=== PATIENT | male | born 2000 | race Caucasian/White ===

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

== ENCOUNTER 2021-09-17 10:04 | Emergency (ER) | payer BC ==
[2021-09-17 10:35] VITALS: O2SAT 100
--- NOTE | 2021-09-17 11:14 | ERPHSYRPT ---
- History of Present Illness Time Seen by Provider: 09/17/21 10:24 Source: patient Exam Limitations: no limitations Patient Subjective Stated Complaint: "My shoulder hurts." Triage Nursing Assessment: The patient reported that he was working under a car four days ago and is experiencing left shoulder pain. He denied any shortness of breath, headache, dizziness, loss of consciousness. He did report decreased ROM with increasing pain to the left shoulder. Head atraumatic normocephalic. pupils 3mm bilateral. Symmetrical chest expansion. no ecchymosis/crepitus to the chest wall. Left shoulder. with decreased ROM and pain upon palpation to the posterior scapula. No crepitus with manipulation. Peripheral pulses +3 bilateral. Physician History: 20 years old male presented in the ER with chief complaint of left shoulder and left-sided chest wall pain after he was working under a car on the [place] with slipped and car hit the shoulder and the left side of the chest. Complaining of moderate intensity sharp pain with movements of right shoulder and palpation of left anterior chest and scapula and better with being still. Denies numbness tingling or weakness of left upper extremity. No difficulty breathing. No bruising or swelling. Timing/Duration: day(s) (3), constant, sudden Severity: moderate Associated Symptoms: denies symptoms Allergies/Adverse Reactions: No Known Drug Allergies Allergy (Unverified 09/17/21 10:18) Hx Tetanus, Diphtheria Vaccination/Date Given: No Hx Influenza Vaccination/Date Given: No Hx Pneumococcal Vaccination/Date Given: No Travel Risk - International Travel Have you traveled outside of the country in past 3 weeks: No - Coronavirus Screening Are you exhibiting any of the following symptoms?: No Close contact with a COVID-19 positive Pt in past 14-21 Days: No - Vaccine Status Have you recieved a Covid-19 vaccination: No - Review of Systems Constitutional: No Symptoms Eyes: No Symptoms Ears, Nose, & Throat: No Symptoms Respiratory: No Symptoms Cardiac: Chest Pain Abdominal/Gastrointestinal: No Symptoms Genitourinary Symptoms: No Symptoms Musculoskeletal: Injury, Joint Pain Skin: No Symptoms Neurological: No Symptoms Endocrine: No Symptoms Hematologic/Lymphatic: No Symptoms Immunological/Allergic: No Symptoms - Past Medical History Pertinent Past Medical History: Yes Psycho-Social History: Depression - Past Surgical History Past Surgical History: Yes Musculoskeletal: Other Other Surgical History: tendon surgery right hand - Social History Smoking Status: Former smoker Exposure to second hand smoke: Yes Drug Use: none Patient Lives Alone: No - Nursing Vital Signs Nursing Vital Signs: Initial Vital Signs Temperature 98.4 F 09/17/21 10:05 Pulse Rate 88 09/17/21 10:05 Respiratory Rate 18 09/17/21 10:05 Blood Pressure 156/85 09/17/21 10:05 O2 Sat by Pulse Oximetry 100 09/17/21 10:05 Pain Scale Pain Intensity 6 - Physical Exam General Appearance: no apparent distress, alert Eye Exam: PERRL/EOMI, eyes nml inspection Ears, Nose, Throat Exam: normal ENT inspection, TMs normal, pharynx normal, moist mucous membranes Neck Exam: normal inspection, non-tender, supple, full range of motion Respiratory Exam: normal breath sounds, chest tenderness (Mild left anterior and posterior chest wall tenderness without crepitus.) Cardiovascular Exam: regular rate/rhythm, normal heart sounds Extremity Exam: normal inspection, pelvis stable, limited range of motion (Left shoulder with diffuse tenderness. Intact passive range of motion. 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 Patient is counseled, very anxious and difficult to convince about obtaining x-rays. X-rays are negative for any acute fracture dislocation. I believe patient has contusion, recommended ibuprofen , outpatient follow-up recommended. Discussed signs symptoms of worsening needing return to ER which he seems understanding. 09/17/21 12:11 Counseled pt/family regarding: diagnosis, need for follow-up, rad results - Departure Departure Disposition: Home Clinical Impression: Shoulder contusion, Chest wall contusion Condition: Stable Critical Care Time: No Referrals: MYRON GARCIAS MD [Primary Care Provider] - Follow Up with PCP/3 days Instructions: Bruised Rib Additional Instructions: Take Tylenol/ibuprofen as needed. Follow-up with primary care for reevaluation. Return to ER for worsening pain/difficulty movements of shoulder or difficulty breathing etc. avoid exertional activity with your left upper extremity. Prescriptions: Ibuprofen 600 mg PO Q6HPRN PRN 10 Days #20 tablet PRN Reason: Pain
--- NOTE | 2021-09-17 12:03 | XRAY ---
Indication: Pain following injury. Comparison: None 3 view left shoulder demonstrates normal bones, articulation, and soft tissues.
--- NOTE | 2021-09-17 12:05 | XRAY ---
Indication: Pain following injury. Comparison: None 2 view left ribs demonstrates normal bones, articulation, and soft tissues with incidental tiny pulmonary calcified granulomas.
[2021-09-17 12:15] VITALS: BP 106/54; PULSE 78
== END 2021-09-17 12:20 | disposition home or self-care (01) ==
LOC: ED 10:04
DX: S40.012A Contusion of left shoulder, initial encounter (principal); S20.212A Contusion of left front wall of thorax, initial encounter; W20.8XXA Other cause of strike by thrown, projected or falling object, initial encounter
CPT/HCPCS: 71100; 73030; 99283

== ENCOUNTER 2021-12-24 18:22 | Emergency (ER) | payer BC ==
[2021-12-24 18:39] VITALS: O2SAT 100
[2021-12-24] MEDS ORDERED: TORAdol 30 mg Injection IM ONE (18:47)
--- NOTE | 2021-12-24 19:02 | ERPHSYRPT ---
- History of Present Illness Time Seen by Provider: 12/24/21 18:44 Source: patient Exam Limitations: no limitations Patient Subjective Stated Complaint: R hand pain after punching wall 2 hours ago Triage Nursing Assessment: Presents to ED ambulatory. A & OX3, answers questions appropriately. VSS. Skin PWD. C/o R hand pain after punching wall a couple hours ago. Noted bruising and deformity to lateral aspect of R hand. Swelling noted as well. C/o pain 10/10. Cap refill <3 seconds to nail beds of all fingers to R hand. Radial pulse 2+ to R wrist. Sensation intact. Small abrasion over 3 most proximal knuckle. Dried blood noted to area. Physician History: Patient is a 21-year-old male presents to emergency department for evaluation of pain to his right hand. Patient states he was upset and punched a wooden doorway. Injury occurred approximately 2 hours prior to arrival. Pain described as an ache that is localized. No radiation. Pain worse with movement and palpation. Patient denies other injuries. No elbow wrist or shoulder pain no BHT or LOC. No neck pain. Cervical spine cleared clinically. Patient is otherwise healthy. He voices no other complaints or concerns at this time. Occurred: this afternoon Method of Injury: direct blow Quality: constant Severity of Pain-Max: moderate Severity of Pain-Current: moderate Extremities Pain Location: hand: right Modifying Factors: Improves With: movement Associated Symptoms: none Allergies/Adverse Reactions: No Known Drug Allergies Allergy (Verified 12/24/21 18:33) Hx Tetanus, Diphtheria Vaccination/Date Given: No Hx Influenza Vaccination/Date Given: No Hx Pneumococcal Vaccination/Date Given: No Travel Risk - International Travel Have you traveled outside of the country in past 3 weeks: No - Coronavirus Screening Are you exhibiting any of the following symptoms?: No - Vaccine Status Have you recieved a Covid-19 vaccination: No - Review of Systems Constitutional: No Symptoms, No Fever, No Chills Eyes: No Symptoms Ears, Nose, & Throat: No Symptoms Respiratory: No Symptoms, No Cough, No Dyspnea Cardiac: No Symptoms, No Chest Pain, No Edema, No Syncope Abdominal/Gastrointestinal: No Symptoms, No Abdominal Pain, No Nausea, No Vo miting, No Diarrhea Genitourinary Symptoms: No Symptoms, No Dysuria Musculoskeletal: No Symptoms, No Back Pain, No Neck Pain Skin: No Symptoms, No Rash Neurological: No Symptoms, No Dizziness, No Focal Weakness, No Sensory Changes Psychological: No Symptoms Endocrine: No Symptoms Hematologic/Lymphatic: No Symptoms Immunological/Allergic: No Symptoms All Other Systems: Reviewed and Negative - Past Medical History Pertinent Past Medical History: Yes Psycho-Social History: Anxiety, Attention Deficit Disorder, Depression - Past Surgical History Past Surgical History: Yes Musculoskeletal: Other Other Surgical History: tendon surgery right hand - Social History Smoking Status: Current every day smoker Exposure to second hand smoke: Yes Drug Use: none Patient Lives Alone: No - Nursing Vital Signs Nursing Vital Signs: Initial Vital Signs Temperature 98.4 F 12/24/21 18:34 Pulse Rate 91 H 12/24/21 18:34 Respiratory Rate 16 12/24/21 18:34 Blood Pressure 137/88 12/24/21 18:34 O2 Sat by Pulse Oximetry 100 12/24/21 18:34 Pain Scale Pain Intensity 10 - Physical Exam General Appearance: no apparent distress, alert Eyes, Ears, Nose, Throat Exam: normal ENT inspection, TMs normal, pharynx normal, moist mucous membranes Neck Exam: normal inspection, non-tender, supple, full range of motion Cardiovascular/Respiratory Exam: chest non-tender, normal breath sounds, regular rate/rhythm, no respiratory distress Abdominal Exam: non-tender, soft, No guarding Back Exam: normal inspection, normal range of motion, No CVA tenderness, No vertebral tenderness Shoulder Exam: normal inspection, non-tender, no evidence of injury, normal ROM Elbow/Forearm Exam: normal inspection, non-tender, no evidence of injury, normal ROM Wrist Exam: normal inspection, non-tender, no evidence of injury, normal ROM Hand Exam: abrasions, bone tenderness, deformity, swelling, No infection, No laceration Neuro/Tendon Exam: normal sensation, normal motor functions, normal tendon functions Mental Status Exam: alert, oriented x 3, cooperative Skin Exam: normal color, warm, dry SpO2 Interpretation: normal SpO2: 100 O2 Delivery: Room Air - Course Nursing assessment & vital signs reviewed: Yes - Radiology Exams Hand X-ray Interpretation: Interpreted by me (Boxer's fracture along with a midshaft fourth metacarpal fracture.) Ordered Tests: Active Orders 24 hr Category Date Time Status HAND (MINIMUM 3 VIEWS) Stat Exams 12/24/21 18:39 Ordered Medication Summary Discontinued Medications Generic Name Dose Route Start Last Admin Trade Name Carolina PRN Reason Stop Dose Admin Ketorolac Tromethamine 30 mg 12/24/21 18:47 Ketorolac Tromethamine 30 Mg/Ml Inj IM 12/24/21 18:48 STAT ONE - Progress Progress: improved Progress Note: X-ray reveals a boxer's fracture along with a midshaft fourth metacarpal fracture of the right hand. There is a large hematoma at the location. There is also an abrasion which appears superficial however I cannot definitively determine that it is not an open fracture. I will treat patient as if it is a open fracture. A prescription for Keflex was forwarded to patient's pharmacy. Patient received Toradol for pain control. A prescription for Toradol was provided to patient. Portions of this note were created with voice recognition technology. There may be grammatical, spelling, punctuation or sound alike errors 12/24/21 19:[address] Carlton, orthopedic hand surgeon. Dr. Carlton will call patient tomorrow morning to evaluate his progress. Dr. Carlton will see patient in his office Tuesday at 1:30 PM. Patient is aware of plan of care. And agrees. Patient signed a release form to forward his contact number/name and date of to Dr. Carlton 12/24/21 19:[address].: Other (Dr. Carlton, hand surgeon) Will see patient in: office Counseled pt/family regarding: diagnosis, need for follow-up, rad results - Departure Departure Disposition: Home Clinical Impression: Boxer's fracture, Closed fracture of 4th metacarpal, Abrasion Condition: Stable Critical Care Time: No Referrals: MYRON GARCIAS MD [Primary Care Provider] - Follow up/PCP as directed Prescriptions: Cephalexin Mh 500 mg [Keflex 500 mg] 500 mg PO TID #21 cap
[2021-12-24] MEDS ORDERED: TORAdol 30 mg Injection ONE (19:05)
[2021-12-24] MEDS ORDERED: KEFLEX 500 MG PO ONE (19:20)
[2021-12-24] MEDS ORDERED: KEFLEX 500 MG ONE (19:32)
[2021-12-24 19:45] VITALS: BP 142/91; PULSE 88
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
== END 2021-12-24 19:54 | disposition home or self-care (01) ==
LOC: ED 18:22
DX: S62.324A Displaced fracture of shaft of fourth metacarpal bone, right hand, initial encounter for closed fracture (principal); S62.396A Other fracture of fifth metacarpal bone, right hand, initial encounter for closed fracture; S60.419A Abrasion of unspecified finger, initial encounter; W22.01XA Walked into wall, initial encounter; Z72.0 Tobacco use
CPT/HCPCS: 73130; 96372; 99284; J1885; A9270-GY

== ENCOUNTER 2024-01-16 11:03 | Emergency (ER) | payer BC ==
[2024-01-16 11:17] VITALS: TEMP 98.4
--- NOTE | 2024-01-16 11:18 | ERPHSYRPT ---
- History of Present Illness Time Seen by Provider: 01/16/24 11:18 Source: patient Exam Limitations: no limitations Patient Subjective Stated Complaint: C/O left sided mouth/tooth pain that started int he middle of the night last night. Triage Nursing Assessment: Patient ambulated back to ER. He is crying; s/s of pain present. No SOB. He is alert and oriented. Left side of mouth/face is swollen. Gums to left lower side of mouth are swollen. A tooth near swelling noted to be broken. Physician History: 22-year-old white male patient who presents with mild left facial swelling and dental pain and associated dental fracture that began last evening. Pain was intense enough to keep the patient up all night. Patient has not measured his temperature to know if he has a fever. He is afebrile here today. Timing/Duration: abrupt onset Severity: mild ENT Location: dental (Left side) Prearrival Treatment: no prearrival treatment Modifying Factors: Improves With: nothing Associated Symptoms: facial pain/swelling (Mild left mandibular), tooth pain (Left lower molars), No neck pain, No sore throat, No difficulty swallowing Allergies/Adverse Reactions: No Known Drug Allergies Allergy (Verified 01/16/24 11:09) Hx Tetanus, Diphtheria Vaccination/Date Given: Yes Hx Influenza Vaccination/Date Given: No Hx Pneumococcal Vaccination/Date Given: No Immunizations Up to Date: Yes Travel Risk - International Travel Have you traveled outside of the country in past 3 weeks: No - Emerging Infectious Disease Are you exhibiting symptoms associated with any current EIDs: No - Review of Systems Constitutional: No Symptoms Eyes: No Symptoms Ears, Nose, & Throat: Other Respiratory: No Symptoms (Left lower molar dental pain) Cardiac: No Symptoms Abdominal/Gastrointestinal: No Symptoms Genitourinary Symptoms: No Symptoms Musculoskeletal: No Symptoms Skin: No Symptoms Neurological: No Symptoms Psychological: No Symptoms Endocrine: No Symptoms Hematologic/Lymphatic: No Symptoms Immunological/Allergic: No Symptoms All Other Systems: Reviewed and Negative - Past Medical History Pertinent Past Medical History: Yes Psycho-Social History: Anxiety, Attention Deficit Disorder, Depression - Past Surgical History Past Surgical History: Yes Musculoskeletal: Other Other Surgical History: tendon surgery right hand - Social History Smoking Status: Current every day smoker Exposure to second hand smoke: No Drug Use: none Patient Lives Alone: No - Nursing Vital Signs Nursing Vital Signs: Initial Vital Signs Temperature 98.4 F 01/16/24 11:03 Pulse Rate 83 01/16/24 11:03 Respiratory Rate 20 01/16/24 11:03 Blood Pressure 140/87 01/16/24 11:03 O2 Sat by Pulse Oximetry 99 01/16/24 11:03 Pain Scale Pain Intensity 10 - Physical Exam General Appearance: no apparent distress, alert, anxiety, thin Eye Exam: bilateral eye: normal inspection, PERRL, EOMI Ear Exam: bilateral ear: auricle normal Nasal Exam: normal inspection Throat Exam: dental tenderness (Left lower molars with dental fracture. No obvious abscess. There is swelling left mandibular region), moist mucus membranes Neck Exam: normal inspection, non-tender, supple, full range of motion Cardiovascular/Respiratory Exam: chest non-tender, no respiratory distress Abdominal Exam: non-tender Neurologic Exam: alert, oriented x 3, cooperative, supervisor tile and mottle II-XII nml as tested, normal mood/affect, nml cerebellar function, nml station & gait, sensation nml Skin Exam: normal color, warm, dry SpO2 Interpretation: normal SpO2: 99 O2 Delivery: Room Air - Course Nursing assessment & vital signs reviewed: Yes Ordered Tests: Medication Summary Discontinued Medications Generic Name Dose Route Start Last Admin Trade Name Freq PRN Reason Stop Dose Admin Ceftriaxone Sodium 1,000 mg 01/16/24 11:22 01/16/24 11:34 Ceftriaxone Sodium 1000 Mg Inj Vial IM 01/16/24 11:23 1,000 mg STAT ONE Administration Ceftriaxone Sodium Confirm 01/16/24 11:26 Ceftriaxone Sodium 1000 Mg Inj Vial Administered 01/16/24 11:27 Dose 1,000 mg .ROUTE .STK-MED ONE Ibuprofen 600 mg 01/16/24 11:22 01/16/24 11:34 Ibuprofen 600 Mg Tablet PO 01/16/24 11:23 600 mg STAT ONE Administration Ibuprofen Confirm 01/16/24 11:25 Ibuprofen 600 Mg Tablet Administered 01/16/24 11:26 Dose 600 mg .ROUTE .STK-MED ONE Lidocaine HCl Confirm 01/16/24 11:26 Lidocaine Hcl 1% 20 Ml Mdv 20 Ml Ml Administered 01/16/24 11:27 Dose 3 ml .ROUTE .STK-MED ONE Oxycodone/Acetaminophen 1 tab 01/16/24 11:22 01/16/24 11:33 Oxycodone Hcl/Apap 5 Mg/325 Mg Tablet PO 01/16/24 11:23 1 tab STAT STA Administration Oxycodone/Acetaminophen Confirm 01/16/24 11:25 Oxycodone Hcl/Apap 5 Mg/325 Mg Tablet Administered 01/16/24 11:26 Dose 1 tab .ROUTE .STK-MED ONE - Progress Progress: unchanged Progress Note: 01/16/24 11:27 My medical decision making and the assignment of low complexity to this patient' s medical issue today is based on review of the patient's past medical history, review of the patient's medication list, review of patient drug allergy list, history present illness and physical findings on examination. The patient workup does not require laboratory radiographic studies. Differential diagnosis includes dental infection, dental abscess, dental fracture Counseled pt/family regarding: diagnosis, need for follow-up Medical Desision Making - Independent Historian Additional History obtained from: Family - Diagnostic Testing Diagnostic test were ordered, analyzed, and reviewed by me: Yes - Risk of complications The pt has a mod risk of morbidity or mortality based on: Need for prescription drug management - Departure Departure Disposition: Home Clinical Impression: Dental infection, Fractured tooth Condition: Stable Critical Care Time: No Referrals: MYRON GARCIAS MD [Primary Care Provider] - Follow up/PCP as directed Additional Instructions: Take your antibiotics as prescribed. Add 600 mg orally ibuprofen 3 times a day with food for the next 5 days. Call a dentist today, 01/16/2024, to make arrangements for definitive care appointment Prescriptions: Oxycodone HCl/Acetaminophen [Percocet 5-325 mg Tablet] 1 each PO Q8H PRN PRN #6 tablet MDD 3 PRN Reason: Moderate To Severe Pain Cephalexin Mh 500 mg [Keflex 500 mg] 500 mg PO TID #21 cap
[2024-01-16] MEDS ORDERED: PERCOCET TABLET 5/325MG ONE (11:25)
[2024-01-16] MEDS ORDERED: MOTRIN 600 MG ONE (11:25)
[2024-01-16] MEDS ORDERED: Rocephin 1000 MG INJ ONE (11:26)
[2024-01-16] MEDS ORDERED: XYLOCAINE 1% HCL 20 ML MDV ONE (11:26)
[2024-01-16] MEDS: PERCOCET TABLET 5/325MG PO STA (11:33)
[2024-01-16] MEDS: MOTRIN 600 MG PO ONE (11:34)
[2024-01-16] MEDS: Rocephin 1000 MG INJ IM ONE (11:34)
[2024-01-16 11:50] VITALS: BP 132/74; PULSE 76; RESP 16; O2SAT 98
== END 2024-01-16 11:50 | disposition home or self-care (01) ==
LOC: ED 11:03
DX: K04.7 Periapical abscess without sinus (principal); S02.5XXA Fracture of tooth (traumatic), initial encounter for closed fracture; K08.89 Other specified disorders of teeth and supporting structures; Z79.891 Long term (current) use of opiate analgesic; Z72.0 Tobacco use
CPT/HCPCS: 96372; 99283; J0696; A9270-GY

== ENCOUNTER 2025-01-03 06:48 | Emergency (ER) | payer BC, MEDICAID ==
[2025-01-03 07:13] VITALS: RESP 18; TEMP 98
[2025-01-03 07:35] LABS: Appearance Clear (Clear); Bacteria None Seen /HPF (None Seen); Bilirubin Negative (Negative); Blood Negative (Negative); Epithelial Cells None Seen /HPF (None Seen); Glucose, Urine Negative (Negative); Hyaline Casts NONE SEEN /LPF (0-2); Ketones Negative (Negative); Leukocyte Esterase Negative (Negative); Nitrite Negative (Negative); Ph 6.5 (4.6-8.0); Protein,Urine Dip Negative (Negative); RBC 0-2 /HPF (0-5); Specific Gravity 1.015 (1.005-1.030); Urobilinogen 0.2 mg/dL (0.2); WBC 0-2 /HPF (0-5)
[2025-01-03] MEDS ORDERED: TORAdol 30 mg Injection ONE (08:00)
[2025-01-03] MEDS: TORAdol 30 mg Injection IM ONE (08:01)
--- NOTE | 2025-01-03 08:04 | ERPHSYRPT ---
- History of Present Illness Time Seen by Provider: 01/03/25 07:08 Historian: patient Exam Limitations: no limitations Patient Subjective Stated Complaint: c/o abdominal pain and vomiting Triage Nursing Assessment: patient brought into ED by girlfriend with c/o left sided abdominal pain that started last week. Patient has had intermittent vomiting for a week. patient has nausea and diarrhea and has hypoactive bowel sounds. Last BM was today, vitals wnl, tenderness with palpation, skin w/n/d, afebrile, patient doesn't appear to be in any distress at this time. Physician History: 24-year-old male presented in the ER with complaints of left-sided abdominal pain off and on for 1 week, moderate intensity sharp in nature, intermittent, worse with diarrhea. Having multiple episodes of loose stool every day. Reports having morning sickness and vomiting with no hematemesis. Patient currently reports 7/10 intensity pain. No fever or chills reported. No recent antibiotic intake. Allergies/Adverse Reactions: coconut Allergy (Verified 01/03/25 06:57) Swelling Home Medications: No Reportable Medications [No Reported Medications] 01/03/25 [History] Hx Tetanus, Diphtheria Vaccination/Date Given: No (unsure) Hx Influenza Vaccination/Date Given: No Hx Pneumococcal Vaccination/Date Given: No Travel Risk - International Travel Have you traveled outside of the country in past 3 weeks: No - Emerging Infectious Disease Are you exhibiting symptoms associated with any current EIDs: Yes Symptoms: Abdominal Pain, Diarrhea, Vomitting - Review of Systems Constitutional: No Symptoms Eyes: No Symptoms Ears, Nose, & Throat: No Symptoms Respiratory: No Symptoms Cardiac: No Symptoms Abdominal/Gastrointestinal: Abdominal Pain, Nausea, Vomiting, Diarrhea Genitourinary Symptoms: No Symptoms Musculoskeletal: No Symptoms Neurological: No Symptoms Hematologic/Lymphatic: No Symptoms Immunological/Allergic: No Symptoms - Past Medical History Pertinent Past Medical History: Yes Neurological History: Migraines Musculoskeletal History: No Pertinent History GI Medical History: Ulcer History: No Pertinent History Psycho-Social History: Anxiety, Attention Deficit Disorder, Depression Male Reproductive Disorders: No Pertinent History Other Medical History: heart murmer - Past Surgical History Past Surgical History: Yes Neuro Surgical History: No Pertinent History Cardiac: No Pertinent History Respiratory: No Pertinent History Gastrointestinal: No Pertinent History Genitourinary: No Pertinent History Musculoskeletal: Other Male Surgical History: No Pertinent History Other Surgical History: tendon surgery right hand - Social History Smoking Status: Current every day smoker Exposure to second hand smoke: No Drug Use: marijuana - Social Determinants of Health Will the patient participate in the screening: Yes Do you worry about a steady place to live?: No Do you have any problems with any of the following?: No known problems In the past 12 months,have you had to go without utilities?: No Transportation Issues: No Has anyone in your support network made you feel unsafe?: No Have you or anyone in your house had to go w/o enough food: No - Nursing Vital Signs Nursing Vital Signs: Initial Vital Signs Temperature 98 F 01/03/25 06:58 Pulse Rate 72 01/03/25 06:58 Respiratory Rate 18 01/03/25 06:58 Blood Pressure 126/80 01/03/25 06:58 O2 Sat by Pulse Oximetry 99 01/03/25 06:58 Pain Scale Pain Intensity 0 - Physical Exam General Appearance: no apparent distress, alert Eye Exam: PERRL/EOMI Ears, Nose, Throat Exam: pharynx normal Neck Exam: normal inspection, non-tender, supple, full range of motion Respiratory Exam: normal breath sounds, lungs clear Cardiovascular Exam: regular rate/rhythm, normal heart sounds Gastrointestinal/Abdomen Exam: soft, normal bowel sounds, tenderness (Left upper and lower quadrant with minimal guarding but no rebound) Back Exam: normal inspection, normal range of motion Extremity Exam: normal inspection, normal range of motion Neurologic Exam: alert, oriented x 3, cooperative Skin Exam: normal color SpO2 Interpretation: normal SpO2: 98 O2 Delivery: Room Air Ordered Tests: Active Orders 24 hr Category Date Time Status ABDOMEN WITHOUT CONTRAST [CT] Stat Exams 01/03/25 07:21 Completed UA W/RFX UR CULTURE Stat Lab 01/03/25 07:23 Completed Medication Summary Discontinued Medications Generic Name Dose Route Start Last Admin Trade Name Freq PRN Reason Stop Dose Admin Ketorolac Tromethamine 30 mg 01/03/25 07:50 01/03/25 08:01 Ketorolac Tromethamine 30 Mg/Ml Inj IM 01/03/25 07:51 30 mg STAT ONE Administration Ketorolac Tromethamine Confirm 01/03/25 08:00 Ketorolac Tromethamine 30 Mg/Ml Inj Administered 01/03/25 08:01 Dose 30 mg .ROUTE .STK-MED ONE Lab/Rad Data: Laboratory Results 01/03/25 Range/Units 07:23 Urine Color Yellow (Yellow) Urine Appearance Clear (Clear) Urine pH 6.5 (4.6-8.0) Ur Specific [place] 1.015 (1.005-1.030) Urine Protein Negative (Negative) Urine Glucose (UA) Negative (Negative) mg/dL Urine Ketones Negative (Negative) Urine Blood Negative (Negative) Urine Nitrite Negative (Negative) Urine Bilirubin Negative (Negative) Urine Urobilinogen 0.2 (0.2) mg/dL Ur Leukocyte Esterase Negative (Negative) U Hyaline Cast (Auto) NONE SEEN (0-2) /LPF Urine Microscopic RBC 0-2 (0-5) /HPF Urine Microscopic WBC 0-2 (0-5) /HPF Ur Epithelial Cells None Seen (None Seen) /HPF Urine Bacteria None Seen (None Seen) /HPF Urine Culture Reflexed NO (NO) - Progress Progress: improved, re-examined Progress Note: 01/03/25 09:14 24-year-old is evaluated in the ER for left-sided abdominal pain with nausea vomiting and diarrhea off-and-on for the last 1 week. Patient has mild tenderness left side but no guarding or rebound tenderness. Not in any distress, given Toradol for symptomatic relief and feeling better on reevaluation. Patient refused to have an IV and lab could not get blood in a couple of sticks because of patient being hard stick. Patient refused to have any blood work done. Has no UTI. CT abdomen pelvis without contrast is negative for any acute intra-abdominal pelvic findings. Could be gastroenteritis, discussed with patient in detail about importance of blood work which would not only help diagnose the condition but also treated appropriately and also offered fluids but he does not want anything to be done. Patient wants to leave AGAINST MEDICAL ADVICE, he is not confused or altered at all, discussed in detail about risk of leaving with AMA which would not only delay the diagnosis but could worsen the condition which she seems understanding. Patient signed AMA paper and walked out of the ER in stable condition without assistance. Complexity of problem addressed,: Moderate acute Complexity of data reviewed/analyzed: Moderate Risk of complication: Mild to moderate Counseled pt/family regarding: lab results, diagnosis, need for follow-up, rad results Medical Desision Making - Independent Historian Additional History obtained from: Spouse - Diagnostic Testing Diagnostic test were ordered, analyzed, and reviewed by me: Yes Radiological Interpretation: Reviewed by me - Risk of complications The pt has a mod risk of morbidity or mortality based on: Need for prescription drug management - Departure Departure Disposition: AMA Clinical Impression: Gastroenteritis, Abdominal pain Condition: Stable Critical Care Time: No Referrals: MYRON GARCIAS MD [Primary Care Provider, INTERNAL MEDICINE] - Follow up/PCP as directed
[2025-01-03 08:33] VITALS: PULSE 50
[2025-01-03 08:36] VITALS: O2SAT 98
[2025-01-03 09:08] VITALS: BP 99/55
--- NOTE | 2025-01-03 09:10 | XRAY ---
Indication: Abdomen pain, vomiting, and diarrhea 1 week. Multiple contiguous axial images obtained through abdomen and pelvis without contrast. Comparison: None Lung bases clear. Heart not enlarged. Noncontrasted stomach and bowel loops appear nonobstructed. Normal appendix. Minimal scattered colonic fecal debris. No free fluid/air. Remaining liver, gallbladder, pancreas, spleen, adrenal glands, kidneys, ureters, bladder, and aorta are unremarkable for noncontrast exam. Osseous structures intact with incidental minimal levoscoliosis centered at L2. No ventral or inguinal hernias. Impression: Minimal levoscoliosis. Remaining CT abdomen/pelvis without contrast exam is normal.
== END 2025-01-03 09:25 | disposition left against medical advice (07) ==
LOC: ED 06:48
DX: K52.9 Noninfective gastroenteritis and colitis, unspecified (principal); R10.9 Unspecified abdominal pain; R11.2 Nausea with vomiting, unspecified; Z72.0 Tobacco use
CPT/HCPCS: 74150; 81001; 96372; 99284; J1885